=== PATIENT | female | born 1985 | race Caucasian/White ===

== ENCOUNTER → 2017-01-10 | Outpatient (CLI) | payer MEDICAID ==
[~2017-01-10] MED LIST: MOTRIN-DPS800 MG PO; NIPPLECREAM TP; PRENATAL VIT1 TAB PO
== END | disposition home or self-care (01) ==
LOC: RAD.S 14:00
DX: Z36 Encounter for antenatal screening of mother (principal); Z3A.28 28 weeks gestation of pregnancy

== ENCOUNTER → 2017-02-14 | Outpatient (CLI) | payer MEDICAID | END | disposition home or self-care (01) | LOC: RAD.S 02-07 13:00 | DX: Z36 Encounter for antenatal screening of mother (principal); Z3A.31 31 weeks gestation of pregnancy ==

== ENCOUNTER 2017-03-08 00:45 | Inpatient (IN) | payer MEDICAID ==
[~2017-03-08] VITALS: Ht 165.1 cm; Wt 65.3 kg
--- NOTE | ~2017-03-08 | HP ---
ADMIT: 03/08/2017 RM/LOC: [facility] MR#: [id number] [address] [facility] [address] [place], [place] [address] LAURIEJUANISTITUS LAW Roger [address] [facility] [place] [address] History and Physical SEX: F AGE: 31 : 1985 Corrected: 03/09/2017 0926 aj DATE OF SERVICE: CHIEF COMPLAINT: Loss of fluid. HISTORY OF PRESENT ILLNESS: This is a 31-year-old female 6, para 5, who presents to the [facility] with an intrauterine at 37 weeks' gestation with estimated date of confinement of 03/29/2017. Her estimated date of confinement is based off the last menstrual period and consistent with a 29-week ultrasound. Her has been complicated by late entry to care and intrauterine growth restriction. She has had growth scans showing adequate growth as well as normal antepartum and testing. At the time of admission, she reports loss of fluid and only occasional uterine contractions. She was found to be grossly ruptured and is therefore admitted for labor. PAST MEDICAL HISTORY: She denies hypertension, diabetes, asthma, kidney, or thyroid disease. PAST SURGICAL HISTORY: None. PAST OBSTETRICAL HISTORY: She has had five term spontaneous vaginal deliveries. Her babies have all weighed between 5 and 6 pounds. SOCIAL HISTORY: Father of the baby is not involved. She denies tobacco, alcohol, or drug use. ALLERGIES: CEPHALOSPORINS. CURRENT MEDICATIONS: vitamins. LABORATORY DATA: Blood type is A positive. Antibody screen negative, hepatitis B surface antigen negative, RPR nonreactive, rubella immune, varicella immune, diabetic screen 92, Pap showed atypical squamous cells of undetermined significance. High-risk HPV testing was positive. Gonorrhea and chlamydia are negative. Group B strep test is unknown. PHYSICAL EXAMINATION: VITAL SIGNS: Temperature 97.1, blood pressure 130/79, pulse 96, and respirations 16. GENERAL: This is a pleasant female in no acute distress. HEENT: Head is normocephalic and atraumatic. Pupils are equal, round, reactive to light and accommodation. Extraocular muscles are intact. NECK: Supple. HEART: Regular rate and rhythm. LUNGS: Clear bilaterally. ABDOMEN: Soft, nontender, nondistended, and gravid. EXTREMITIES: Nontender. ADMIT: 03/08/2017 RM/LOC: [facility] MR#: [id number] [address] [address] DESITITUS LAW Roger [address] [facility] [place] [address] History and Physical SEX: F AGE: 31 : 1985 heart tones are 130s at baseline, moderate variability is present, 15 x 15 accelerations are present. Decelerations are absent. Uterine contractions are irregular. Her cervix is 3 cm, 50% effaced, -2 station per nursing staff. Fetus is vertex. IMPRESSION: This is a 31-year-old female, 6, para 5, with an intrauterine at 37 weeks' gestation in labor. PLAN: At this time, I will admit for labor. We will augment as needed and treat her pain as she desires. Given that her group B strep is unknown at this time, we will treat risk factors. Louann Rinaldi MD/ julio césar JOB #: [id number] CC: Oma James, Attending Physician Oma James, Family Physician Corrected: 03/09/2017 0926 ajjose luis
--- NOTE | ~2017-03-08 | FD ---
ADMIT: 03/08/2017 RM/LOC: 221 [facility] MR#: [id number] [facility] [address] [place], [place] [address] TITUS GARY [address] [facility], [place] [id number] Final Diagnosis SEX: F AGE: 31 : 1985 ADMISSION DATE: 03/08/2017 DISCHARGE DATE: 03/10/2017 FINAL DIAGNOSIS: Status post spontaneous vaginal delivery at term. PROCEDURE: 03/08/2017 spontaneous vaginal delivery with delivery of viable male, 4 pounds 2.5 ounces, Apgars 8 and 9. Louann Rinaldi MD/ hayden JOB #: [id number] CC: Oma James MD, Attending Physician Oma James MD, Family Physician
[2017-03-11] MEDS ORDERED: PRENATAL VIT1 TAB PO (14:08)
[2017-03-11] MEDS ORDERED: MOTRIN-DPS800 MG PO (14:08)
[2017-03-11] MEDS ORDERED: NIPPLECREAM TP (14:09)
--- NOTE | 2017-03-29 12:13 | OR ---
ADMIT: 03/08/2017 RM/LOC: [address] [facility] MR#: [id number] [address] [address] TITUS GARY [address] [place] [address] Operative/Delivery Room Report SEX: F AGE: 31 : 1985 SURGERY DATE: 03/08/2017 SURGEON: Louann Rinaldi MD PREOPERATIVE DIAGNOSES: 1. Intrauterine at 37 weeks' gestation. 2. Active labor. 3. Group B Streptococcus unknown. POSTOPERATIVE DIAGNOSES: 1. Intrauterine at 37 weeks' gestation. 2. Active labor. 3. Group B Streptococcus unknown. 4. Delivery of a viable male infant at 0456 hours, weighing 4 pounds 2.5 ounces with scores of 8 at 1 minute and 9 at 5 minutes. PROCEDURE: Spontaneous vaginal delivery. ANESTHESIA: None. COMPLICATIONS: Precipitous delivery. ESTIMATED BLOOD LOSS: 100 mL. FLUIDS: Crystalloid. INDICATIONS: This is a 31-year-old female, 6, para 5, who presented to the [facility] with an intrauterine at 37 weeks' gestation in active labor. Her was complicated by late entry to care and intrauterine growth restriction. She did progress to be complete quickly at which time, she delivered a male , with nursing personnel in attendance. DESCRIPTION OF PROCEDURE: I was called, when the patient was 7 cm, to come to ADMIT: 03/08/2017 RM/LOC: [address] [facility] MR#: [id number] [address] [place] [id number] TITUS GARY [address] [place] [address] Operative/Delivery Room Report SEX: F AGE: 31 : 1985 the hospital. I arrived shortly after the baby delivered in the presence of nursing staff. The cord had been clamped x2 and cut, and the was in the warmer. At this time, the patient was placed in the dorsal lithotomy position and prepped and draped in usual sterile fashion. Cord blood had already been obtained. The 20 units of Pitocin were infused with IV fluids to help firm the uterus. The placenta delivered intact spontaneously. The uterus was not explored. Examination of the cervix and vaginal vault did not reveal any lacerations. Examination of the perineum revealed a small right periurethral abrasion, this was hemostatic and did not require repair. The patient tolerated the procedure well. Sponge, needle, and instrument counts were correct. She is now recovering in her Labor and Delivery suite with her infant. Louann Rinaldi MD/ julio césar JOB #: [id number] CC: Oma James, Attending Physician Oma James, Family Physician
== END 2017-03-10 14:45 | disposition home or self-care (01) | DRG 775 ==
LOC: 2LDRP 00:45 → BC 00:45 → 2LDRP 00:46
PROVIDERS: ADMIT Obstetrics & Gynecology
PROC: 10E0XZZ Delivery of Products of Conception, External Approach (ICD-10-PCS; principal; 2017-03-08)
DX: O36.5930 Maternal care for other known or suspected poor fetal growth, third trimester, not applicable or unspecified (principal); Z37.0 Single live birth; Z3A.37 37 weeks gestation of pregnancy